=== PATIENT | female | born 1955 | race Asian ===

== ENCOUNTER 2016-12-02 11:39 | Emergency (ER) | payer OTHER ==
[2016-12-02 11:57] VITALS: TEMP 99.5; BMI 24.7
--- NOTE | 2016-12-02 12:46 | PDOC ---
History of Present Illness <William Zhang - Last Filed: 12/02/16 17:05> - History of Present Illness Initial Comments: 12/02/16 13:12 Patient is a 60 year old female with significant medical hx of HTN and chronic hip pain who is presenting to the ED with left hip pain for the past few months that worsened last night. Last night the patients pain became more severe while lying down at around midnight. She notes that her pain worsened while she was getting up to use the bathroom. The patient complains of left hip pain with radiation down her left hip and knee that makes it difficult to move. The patient states that the pain has become so severe shes had to use her cane to ambulate. Denies recent fall or recent trauma. <Sydnee Goodson - Last Filed: 12/02/16 17:23> - General Chief Complaint: Pain, Acute Stated Complaint: LT LEG PAIN Past History - Past Medical History HTN: Yes - Surgical History Appendectomy: Yes - Psycho/Social/Smoking Cessation Hx Suicidal Ideation: No Smoking History: Never smoked <William Zhang - Last Filed: 12/02/16 17:05> <Sydnee Goodson - Last Filed: 12/02/16 17:23> - Past Medical History Allergies/Adverse Reactions: Allergies Allergy/AdvReac Type Severity Reaction Status Date / Time No Known Drug Allergies Allergy Verified 12/02/16 11:53 Home Medications: Ambulatory Orders Cyclobenzaprine HCl [Flexeril 10 mg] 10 mg PO TID #30 tablet 12/02/16 Ibuprofen [Motrin -] 600 mg PO QID #40 tablet 12/02/16 Ondansetron [Zofran *Odt*] 8 mg SL TID #30 od.tablet 12/02/16 Oxycodone HCl/Acetaminophen [Percocet 10-325 mg Tablet] 1 each PO QID #20 tablet MDD 4 12/02/16 Oxycodone HCl/Acetaminophen [Percocet 5-325 mg Tablet] 1 tab PO Q6H 12/02/16 Tramadol HCl 0 mg PO ASDIR PRN 12/02/16 Review of Systems - Review of Systems Comments:: 12/02/16 13:13 GENERAL/CONSTITUTIONAL: No fever or chills. No weakness. HEAD, EYES, EARS, NOSE AND THROAT: No change in vision. No ear pain or discharge. No sore throat. CARDIOVASCULAR: No chest pain or shortness of breath. RESPIRATORY: No cough, wheezing, or hemoptysis. GASTROINTESTINAL: No nausea, vomiting, diarrhea or constipation. GENITOURINARY: No dysuria, frequency, or change in urination. MUSCULOSKELETAL: Left hip pain with radiation down left lower extremity. No joint or muscle swelling. No neck pain. SKIN: No rash NEUROLOGIC: No headache, vertigo, loss of consciousness, or change in strength/ sensation. <Sydnee Goodson - Last Filed: 12/02/16 17:23> *Physical Exam - Vital Signs Last Vital Signs Temp Pulse Resp BP Pulse Ox 99.5 F 90 19 125/98 100 12/02/16 11:53 12/02/16 11:53 12/02/16 11:53 12/02/16 11:53 12/02/16 11:53 <William Zhang - Last Filed: 12/02/16 17:05> - Vital Signs Last Vital Signs Temp Pulse Resp BP Pulse Ox 99.5 F 90 19 125/98 100 12/02/16 11:53 12/02/16 11:53 12/02/16 11:53 12/02/16 11:53 12/02/16 11:53 - Physical Exam Comments: 12/02/16 13:14 GENERAL: Awake, alert, and fully oriented, in no acute distress HEAD: No signs of trauma EYES: PERRLA, EOMI, sclera anicteric, conjunctiva clear ENT: Auricles normal inspection, hearing grossly normal, nares patent, oropharynx clear without exudates. Moist mucosa NECK: Normal ROM, supple, no lymphadenopathy, JVD, or masses LUNGS: Breath sounds equal, clear to auscultation bilaterally. No wheezes, and no crackles HEART: Regular rate and rhythm, normal S1 and S2, no murmurs, rubs or gallops ABDOMEN: Soft, nontender, normoactive bowel sounds. No guarding, no rebound. No masses MUSCULOSKELETAL: Tender at the sciatic notch to the left, pressure there reproduces pain shes experiencing. EXTREMITIES: Testing of motor strength to lower extremities limited due to pain. No edema. No clubbing or cyanosis. No cords or erythema NEUROLOGICAL: Cranial nerves II through XII grossly intact. Normal speech, normal gait SKIN: Warm, Dry, normal turgor, no rashes or lesions noted. ENDOCRINE: No increased thirst. No abnormal weight change. HEMATOLOGIC/LYMPHATIC: No anemia, easy bleeding, or history of blood clots. ALLERGIC/IMMUNOLOGIC: No hives or skin allergy. <Sydnee Goodson - Last Filed: 12/02/16 17:23> ED Treatment Course - RADIOLOGY Radiograph Interpretation: 12/02/16 17:[address] Impression: L4-L5 mild degenerative vacuum phenomena and mild disc bulge probably impinging right L4 nerve root with moderate degenerative central spine canal stenosis L3-L4 minimal disc bulge and mild degenerative central spinal canal stenosis. Reported By: Jc Castillo MD <Sydnee Goodson - Last Filed: 12/02/16 17:23> *DC/Admit/Observation/Transfer - Attestations Physician Attestion: 12/02/16 12:46 I, Dr. William Zhang, attest that this document has been prepared under my direction and personally reviewed by me in its entirety. I further attest, that it accurately reflects all work, treatment, procedures and medical decision -making performed by me. <William Zhang - Last Filed: 12/02/16 17:05> - Attestations Scribe Attestion: 12/02/16 13:16 Documentation prepared by Sydnee Goodson, acting as medical billing service for William Zhang MD. <Sydnee Goodson - Last Filed: 12/02/16 17:23> Diagnosis at time of Disposition: Lumbar radiculopathy, acute - Discharge Dispostion Disposition: HOME Condition at time of disposition: Good - Prescriptions Prescriptions: Cyclobenzaprine HCl [Flexeril 10 mg] 10 mg PO TID #30 tablet Ibuprofen [Motrin -] 600 mg PO QID #40 tablet Oxycodone HCl/Acetaminophen [Percocet 10-325 mg Tablet] 1 each PO QID #20 tablet MDD 4 Ondansetron [Zofran *Odt*] 8 mg SL TID #30 od.tablet - Referrals Referrals: Alec Will MD [Primary Care Provider] - Jaswinder Cruz MD [Staff Physician] - - Patient Instructions Printed Discharge Instructions: DI for Lumbar Radiculopathy Additional Instructions: Mrs Victor- You need to follow up with a neurosurgeon to see if there is a procedure that could help you. In the meanwhile I wrote for lots of medications to keep you comfortable. Return to us if any problems. Best- Dr. William Zhang
[2016-12-02] MEDS ORDERED: OXYCODONE/APAP 5/325MG COMBO TABLET PO ONE (13:14)
[2016-12-02] MEDS ORDERED: KETOROLAC TROMETHAMINE 60 MG/2 ML VIAL IM ONE (13:14)
[2016-12-02] MEDS ORDERED: CYCLOBENZAPRINE HCL 10 MG TABLET (FP) PO ONE (13:14)
[2016-12-02] MEDS ORDERED: methylPREDNISolone NA SUCC 125 MG/2 ML VIAL IM ONE (13:14)
[2016-12-02] MEDS ORDERED: KETOROLAC TROMETHAMINE 60 MG/2 ML VIAL ONE (13:33)
[2016-12-02] MEDS ORDERED: OXYCODONE/APAP 5/325MG COMBO TABLET ONE (13:33)
[2016-12-02] MEDS ORDERED: CYCLOBENZAPRINE HCL 10 MG TABLET (FP) ONE (13:34)
[2016-12-02] MEDS ORDERED: methylPREDNISolone NA SUCC 125 MG/2 ML VIAL ONE (13:34)
[2016-12-02 17:27] VITALS: BP 121/73; PULSE 83
== END 2016-12-02 17:28 | disposition home or self-care (01) ==
LOC: JER 11:39
PROC: 3E0233Z Introduction of Anti-inflammatory into Muscle, Percutaneous Approach (ICD-10-PCS; principal; 2016-12-02)
PROC: 3E0233Z Introduction of Anti-inflammatory into Muscle, Percutaneous Approach (ICD-10-PCS; 2016-12-02)
DX: M54.16 Radiculopathy, lumbar region (principal)
CPT/HCPCS: 72131-TC; 99281-25

== ENCOUNTER 2023-11-24 12:37 | Emergency (ER) | payer OTHER ==
[2023-11-24 12:48] VITALS: BP 133/61; PULSE 79; RESP 18; TEMP 98.8; BMI 26.9
== END 2023-11-24 17:26 | disposition home or self-care (01) ==
LOC: JERFT 12:37
PROC: 2W3QX1Z Immobilization of Right Lower Leg using Splint (ICD-10-PCS; principal; 2023-11-24)
DX: S82.841A Displaced bimalleolar fracture of right lower leg, initial encounter for closed fracture (principal); W01.0XXA Fall on same level from slipping, tripping and stumbling without subsequent striking against object, initial encounter
CPT/HCPCS: 29515; 73610-TC-RT-FY; 99283-25